=== PATIENT | female | born 1940 | race Caucasian/White ===

== ENCOUNTER 2019-02-11 14:18 | Observation (INO) ==
[2019-02-11] MEDS ORDERED: 0.9 % Sodium Chloride 1,000 ML IVC ONE ×2 (15:11→18:51)
[2019-02-11 15:26] LABS: Basophils % 0.2 %; Eosinophils % 0.9 %; Hematocrit 39.4 % (35.3-44.9); Hemoglobin 13.1 g/dL (11.5-15.4); Immature Granulocytes % 0.4 % (0-4); Lymphocytes # 0.4 K/mcL (0.6-4.6); Lymphocytes % 8.2 %; Mean Corpuscular HGB Conc 33.2 g/dL (31.6-35.5); Mean Corpuscular Hemoglobin 30.8 pg (28.0-33.3); Mean Corpuscular Volume 92.7 fL (83.0-100.0); Mean Platelet Volume 10.4 fL (9.4-12.4); Monocytes % 0.2 %; Neutrophils # 4.2 K/mcL (1.6-8.9); Platelet Count 185 K/mcL (140-400); Red Blood Count 4.25 M/mcL (3.82-4.97); Red Cell Distribution Width 14.1 % (11.5-14.5); Segmented Neutrophils % 90.1 %
[2019-02-11] MEDS ORDERED: Ondansetron 4 MG/2 ML VIAL IVP ONE (15:28)
[2019-02-11 15:36] LABS: INR 1.4; Prothrombin Time 15.5 Seconds (9.4-12.1)
--- NOTE | 2019-02-11 15:39 | Emergency Department Note ---
Disposition Clinical Impression: Generalized weakness, SVT (supraventricular tachycardia) Nausea & vomiting Qualifiers: Vomiting type: unspecified Vomiting Intractability: non-intractable Qualified Code(s): R11.2 - Nausea with vomiting, unspecified Disposition: Admitted As Inpatient Condition: Undetermined Referrals: NONE,PCP [Primary Care Provider] - Forms: ED Satisfaction Letter Time of Disposition: 18:15 Nausea/Vomiting/Diarrhea HPI - General Chief complaint: ED Nausea/Vomiting/Diarrhea Stated complaint: Bodyaches,fever,chills,vomiting,Diahrrea Time Seen by Provider: 02/11/19 14:53 Source: patient Mode of arrival: ambulatory Limitations: no limitations Nursing Notes Reviewed: Yes Vital Signs Reviewed: Yes - History of Present Illness HPI Narrative: 78-year-old female with history of atrial fibrillation on metoprolol and Eliquis arrives to the emergency department with complaint of nausea, vomiting and irregular heart rate. The patient states that she was at a service and felt nauseated begin shaking. Patient has had 4 episodes of vomiting since as well as started. The patient arrives to the emergency department in SVT. She quickly vagal herself out of SVT. The patient denies any other complaints at this time other than just some mild generalized weakness. Patient denies any traumatic injury, no abdominal pain, no difficulty breathing, cough, chest pain. She is resting comfortably in the room at this time but she does appear to have what appears to be bilious vomit in a emesis bag at bedside. Patient denies any other acute complaints at this time. - Related Data Home Medications Medication Instructions Recorded Confirmed Allopurinol [Zyloprim 300 MG] 300 mg PO HS 02/11/19 02/11/19 Apixaban [Eliquis] 5 mg PO BID 02/11/19 02/11/19 Aspirin [Lo-Dose Aspirin EC] 81 mg PO HS 02/11/19 02/11/19 Atorvastatin Calcium [Lipitor] 20 mg PO HS 02/11/19 02/11/19 CloNIDine Patch [Catapres-Tts] 0.3 mg TD REAVES 02/11/19 02/11/19 Furosemide [Lasix] 20 mg PO DAILY 02/11/19 02/11/19 Latanoprost [Xalatan] 1 drop BOTH EYES HS 02/11/19 02/11/19 Losartan/Hydrochlorothiazide 1 tab PO DAILY 02/11/19 02/11/19 [Losartan-Hctz 50-12.5 mg Tab] Metoprolol Succinate [Toprol Xl] 50 mg PO DAILY 02/11/19 02/11/19 Allergies Allergy/AdvReac Type Severity Reaction Status Date / Time No Known Allergies Allergy Verified 02/11/19 15:27 All systems ED: reviewed and negative except as stated. Constitutional: Reports: fever, chills, weakness Eyes: Denies: vision change ENT ED: Denies: dysphagia Cardiovascular: Reports: palpitations. Denies: chest pain, dyspnea on exertion Respiratory: Denies: dyspnea Gastrointestinal: Reports: nausea, vomiting. Denies: abdominal pain, diarrhea, constipation, hematemesis, melena, hematochezia Genitourinary: Denies: urgency, dysuria Musculoskeletal: Denies: back pain Integumentary: Denies: rash Neurological: Denies: headache Past Medical History - Past Medical History Attestation: Yes The following information was validated with the patient. Source: patient, old records reviewed Medical history: Reports: atrial fibrillation, hyperlipidemia, hypertension Surgical history: Reports: non-contributory - Social History Smoking Status: Never smoker Alcohol use: Reports: none Drug use: Reports: none Physical Exam - General Limitations: no limitations General appearance: alert, in no apparent distress - Head Head exam: atraumatic, normocephalic, normal inspection - Eye Eye exam: Present: normal appearance, PERRL, EOMI - ENT ENT exam: normal exam, normal oropharynx, mucous membranes moist - Neck Neck exam: Present: normal inspection, full ROM, trachea midline - Chest Chest inspection: Present: normal inspection, symmetric chest wall rise - Respiratory Respiratory exam: Present: normal lung sounds bilaterally - Cardiovascular Cardiovascular exam: Present: regular rate, normal rhythm, normal heart sounds - Abdominal Exam Abdominal exam: Present: soft, Non-Tender. Absent: tenderness, distention, guarding, rebound, rigidity - Extremities Exam Extremities exam: Present: normal inspection, full ROM, normal capillary refill. Absent: tenderness, pedal edema - Neurological Exam Neurological exam: Present: alert, oriented X3, CN II-XII intact - Skin Skin exam: Present: warm, dry, intact, normal color Course Vital Signs Temperature 100.9 F H 02/11/19 14:33 Pulse Rate 78 02/11/19 14:33 Respiratory Rate 18 02/11/19 14:33 Blood Pressure 137/84 02/11/19 14:33 O2 Sat by Pulse Oximetry 96 02/11/19 14:33 Temperature 100.9 F H 02/11/19 14:33 Pulse Rate 99 02/11/19 17:38 Respiratory Rate 14 02/11/19 17:38 Blood Pressure 158/76 02/11/19 17:38 O2 Sat by Pulse Oximetry 97 02/11/19 17:38 Oxygen Delivery Oxygen Delivery Room Air Nausea/Vomiting/Diarrhea - MDM Narrative Medical decision making narrative: Patient's evaluation in the emergency department demonstrates numerous electrolyte abnormalities. The patient has been going in and out of SVT upon arrival that is easily corrected with vagal response. The patient will be admitted to the hospital at this time given the patient's weakness and continued nausea. No further questions or concerns noted at this time. Patient and timur gunny made aware. Accepted by Dr. Schroeder. - Lab Data Lab results reviewed: Yes I reviewed the patient's lab results. Result diagrams: 02/11/19 14:56 02/11/19 14:56 Lab Results 02/11/19 02/11/19 02/11/19 Range/Units 14:56 14:56 14:56 WBC 4.6 (4.3-11.1) K/mcL RBC 4.25 (3.82-4.97) M/mcL Hgb 13.1 (11.5-15.4) g/dL Hct 39.4 (35.3-44.9) % MCV 92.7 (83.0-100.0) fL MCH 30.8 (28.0-33.3) pg MCHC 33.2 (31.6-35.5) g/dL RDW 14.1 (11.5-14.5) % Plt Count 185 (140-400) K/mcL MPV 10.4 (9.4-12.4) fL Immature Gran % 0.4 (0-4) % Seg Neutrophils % 90.1 % Lymphocytes % 8.2 % Monocytes % 0.2 % Eosinophils % 0.9 % Basophils % 0.2 % Neutrophils # 4.2 (1.6-8.9) K/mcL Lymphocytes # 0.4 L (0.6-4.6) K/mcL Monocytes # 0.0 (0.0-1.3) K/mcL Eosinophils # 0.0 (0.0-0.6) K/mcL Basophils # 0.0 (0.0-0.2) K/mcL PT 15.5 H (9.4-12.1) Seconds INR 1.4 APTT 24.0 L (26.0-36.0) Seconds D-Dimer 3168 H (0-500) ng/mLFEU Sodium 140 (136-145) mEq/L Potassium 3.2 L (3.5-5.1) mEq/L Chloride 100 (98-107) mEq/L Carbon Dioxide 26 (23-29) mEq/L BUN 29 H (8-23) mg/dL Creatinine 1.04 (0.60-1.20) mg/dL Est GFR ( Amer) > 60 (> 60) Est GFR (Non-Af Amer) 51 L (> 60) BUN/Creatinine Ratio 28 H (6-26) Glucose 100 (70-105) mg/dL Calculated Osmolality 296 (280-300) Calcium 9.6 (8.6-10.3) mg/dL Magnesium 1.4 L (1.6-2.6) mg/dL Troponin I < 0.03 (< 0.04) ng/mL TSH 2.609 (0.340-5.600) mcIU/mL Urine Color (Yellow) Urine Clarity (Clear) Urine pH (5.0-8.0) pH Units Ur Specific [place] (1.010-1.025) Urine Protein (Neg-Trace) mg/dL Urine Glucose (UA) (Normal) mg/dL Urine Ketones (Negative) mg/dL Urine Blood (Negative) Urine Nitrite (Negative) Urine Bilirubin (Negative) Urine Urobilinogen (Normal) mg/dL Ur Leukocyte Esterase (Negative) Urine Microscopic RBC (0-3) per hpf Urine Microscopic WBC (0-3) per hpf Ur Squamous Epith Cells (None-Few) per lpf Urine Bacteria (None-Few) per hpf Hyaline Casts (None-Few) per lpf Ur Culture Indicated? (NO) 02/11/19 Range/Units 16:37 WBC (4.3-11.1) K/mcL RBC (3.82-4.97) M/mcL Hgb (11.5-15.4) g/dL Hct (35.3-44.9) % MCV (83.0-100.0) fL MCH (28.0-33.3) pg MCHC (31.6-35.5) g/dL RDW (11.5-14.5) % Plt Count (140-400) K/mcL MPV (9.4-12.4) fL Immature Gran % (0-4) % Seg Neutrophils % % Lymphocytes % % Monocytes % % Eosinophils % % Basophils % % Neutrophils # (1.6-8.9) K/mcL Lymphocytes # (0.6-4.6) K/mcL Monocytes # (0.0-1.3) K/mcL Eosinophils # (0.0-0.6) K/mcL Basophils # (0.0-0.2) K/mcL PT (9.4-12.1) Seconds INR APTT (26.0-36.0) Seconds D-Dimer (0-500) ng/mLFEU Sodium (136-145) mEq/L Potassium (3.5-5.1) mEq/L Chloride (98-107) mEq/L Carbon Dioxide (23-29) mEq/L BUN (8-23) mg/dL Creatinine (0.60-1.20) mg/dL Est GFR ( Amer) (> 60) Est GFR (Non-Af Amer) (> 60) BUN/Creatinine Ratio (6-26) Glucose (70-105) mg/dL Calculated Osmolality (280-300) Calcium (8.6-10.3) mg/dL Magnesium (1.6-2.6) mg/dL Troponin I (< 0.04) ng/mL TSH (0.340-5.600) mcIU/mL Urine Color Yellow (Yellow) Urine Clarity Clear (Clear) Urine pH 6.5 (5.0-8.0) pH Units Ur Specific [place] 1.015 (1.010-1.025) Urine Protein Negative (Neg-Trace) mg/dL Urine Glucose (UA) Normal (Normal) mg/dL Urine Ketones Negative (Negative) mg/dL Urine Blood Negative (Negative) Urine Nitrite Negative (Negative) Urine Bilirubin Negative (Negative) Urine Urobilinogen Normal (Normal) mg/dL Ur Leukocyte Esterase Small H (Negative) Urine Microscopic RBC 3-5 H (0-3) per hpf Urine Microscopic WBC 5-15 H (0-3) per hpf Ur Squamous Epith Cells Many H (None-Few) per lpf Urine Bacteria Few (None-Few) per hpf Hyaline Casts None Seen (None-Few) per lpf Ur Culture Indicated? NO. A (NO) - Radiology Data Radiology results reviewed: Yes I reviewed the patient's radiology results. Chest X-Ray 02/11/19 15:11 IMPRESSION: No acute abnormality detected. D/ / Daniel Muniz MD / Daniel Muniz MD Interpreting Provider: Daniel uMniz MD Chest CTA 02/11/19 15:49 IMPRESSION: No evidence of pulmonary embolism or acute pulmonary abnormality. Moderate-sized hiatal hernia. Patulous esophagus. Correlate with any clinical evidence of esophageal dysmotility. D/ / Daniel Muniz MD / Daniel Muniz MD Interpreting Provider: Daniel Muniz MD - EKG Data EKG attestation: Yes I reviewed and interpreted this EKG. EKG results narrative: Heart rate 113 beats for minute. Sinus tachycardia. Mild ST depression noted in lead 1. No other acute changes noted. EKG #2 was a rhythm strip with heart rate 180 SVT. Attestation Statement - Attestation Attestation: I, Hero Myles, examined this patient and my medical decision-making was reviewed with the BLEACH MAKER/PA/Advanced Practice Nurse/Resident Physician. I agree with the documented findings, disposition and treatment plan as described except to the extent set forth below. 78-year-old female presents emergency Department with concerns of generalized malaise, weakness, fatigue. Patient was at a when she had acute onset of her symptoms. EMS was called and evaluated the patient who found that she was in a tachycardic irregular rhythm. Patient has a history of atrial fibrillation. She is visiting from [place]. Denies recent nausea, vomiting, diarrhea, chest pain, shortness breath, syncope. During the evaluation the patient went in and out of SVT multiple times. She improved and converted to a sinus rhythm with vagal maneuvers each time. Laboratory evaluation did not reveal significant amount he. Because of patient's recurrent SVT as well as her recurrent associated symptoms, she will be admitted to the hospitalist for further evaluation. Patient had a fever during the initial evaluation, influe nza was negative. Patient was hypomagnesemic. CTA of the chest did not show evidence of PE or infiltrate.
[2019-02-11 15:44] LABS: BUN/Creatinine Ratio 28 (6-26); Blood Urea Nitrogen 29 mg/dL (8-23); Calcium 9.6 mg/dL (8.6-10.3); Carbon Dioxide 26 mEq/L (23-29); Chloride 100 mEq/L (98-107); Glucose 100 mg/dL (70-105); Osmolality,Calculated 296 (280-300); Potassium 3.2 mEq/L (3.5-5.1); Sodium 140 mEq/L (136-145); eGFR For Non-African Americans 51 (> 60)
[2019-02-11 15:45] LABS: Troponin I < 0.03 ng/mL (< 0.04)
[2019-02-11] MEDS ORDERED: Isovue-370 500 ML BOTTLE IVP ONE (15:49)
[2019-02-11 15:54] LABS: Magnesium 1.4 mg/dL (1.6-2.6)
[2019-02-11 15:58] LABS: Thyroid Stimulating Hormone 2.609 mcIU/mL (0.340-5.600)
[2019-02-11 16:49] LABS: Bilirubin,Urine Negative (Negative); Blood,Urine Negative (Negative); Clarity,Urine Clear (Clear); Color,Urine Yellow (Yellow); Glucose,Urine (UA) Normal (Normal); Ketones,Urine Negative (Negative); Leukocyte Esterase,Urine Small (Negative); Nitrite,Urine Negative (Negative); PH,Urine 6.5 pH Units (5.0-8.0); Protein,Urine Negative (Neg-Trace); Specific Gravity,Urine 1.015 (1.010-1.025); Urobilinogen,Urine Normal (Normal)
[2019-02-11 16:54] LABS: Bacteria,Urine Few per hpf (None-Few); Hyaline Casts,Urine None Seen per lpf (None-Few); Squamous Epithelial Cell,Urine Many per lpf (None-Few)
[2019-02-11] MEDS ORDERED: Naloxone 0.4 MG/ML INJ IVP PRN (21:02)
[2019-02-11] MEDS ORDERED: Ondansetron 4 MG/2 ML VIAL IVP PRN (21:02)
--- NOTE | 2019-02-11 21:05 | Internal Med History&Physical ---
<Bonnie Mcbride - Last Filed: 02/12/19 01:28> Date of Encounter: 02/12/19 Time of Encounter: 21:53 Internal Medicine - H&P: HPI Chief complaint: Chills, nausea, vomiting Admitted From: Home History of present illness: Ms. Farmer is a 78 year old female with history of A. fib on Eliquis, HTN, HLD who presented to the ER with a chief complaint of chills, nausea and vomiting that started today. Patient states that she was in from out of town for her nephew's today. She states that her symptoms began when they were at the grave site early afternoon, and she started to experience chills although it was not cold out. She had not ate anything since breakfast and thought that she maybe just needed something to eat. They proceeded to the [employer] club for a late lunch and she continued to experience chills. A family member that is an EMT checked her pulse and said that it was elevated, and recommended seeing how she felt after eating something. Patient states that shortly after eating she felt nauseous and began to vomit, at which point a brought her to the ER. She states that there were few moments where her heart seemed to be racing, but otherwise denies palpitations. He does admit that she has been under increased stress recently with trying to sell her home and then the of her nephew. She denies fevers or any recent sick contacts. She states that she had a little bit of diarrhea yesterday, but that is not abnormal for her on occasion. She states that she felt fine until this afternoon when her symptoms began. She denies lightheadedness, syncope, chest pain, shortness of breath, hematemesis, or abdominal pain. She was febrile on presentation and found to have multiple episodes of SVT that converted with vagal maneuvers and was admitted for further monitoring. ER course: Febrile at 100.9, HR 99, RR 18, BP 137/84, 96% on room air WBC 4.6 K 3.2, Mg 1.4 EKG HR 113, sinus tachycardia, mild ST depression in lead 1 Rhythm strip HR 180, SVT Patient with multiple episodes of SVT in the ER that improved and converted with vagal maneuvers each time s/p 1L NS fluid bolus UA nitrite negative, small leukocyte Estrace, few bacteria, many squamous Influenza A/B- CXR no acute abnormality CTA no evidence of PE. Moderate sized hiatal hernia. Patulous esophagus, correlate with any clinical evidence of esophageal dysmotility. Past Med Surg Social Fam HX - Past Medical History Medical history: atrial fibrillation, hyperlipidemia, hypertension Additional medical history: Gout - Past Surgical History Surgical History: non-contributory Additional surgical history: D & C - Social History Smoking Status: Never smoker Alcohol use: none Drug use: none Internal Medicine - H&P: Meds Apixaban [Eliquis] 5 mg PO BID 02/11/19 [History] Aspirin [Lo-Dose Aspirin EC] 81 mg PO HS 02/11/19 [History] Atorvastatin Calcium [Lipitor] 20 mg PO HS 02/11/19 [History] Losartan/Hydrochlorothiazide [Losartan-Hctz 50-12.5 mg Tab] 1 tab PO DAILY 02/11/19 [History] Metoprolol Succinate [Toprol Xl] 50 mg PO DAILY 02/11/19 [History] RX: Allopurinol [Zyloprim 300 MG] 300 mg PO HS 02/11/19 [History] RX: CloNIDine Patch [Catapres-Tts] 0.3 mg TD REAVES 02/11/19 [History] RX: Furosemide [Lasix] 20 mg PO DAILY 02/11/19 [History] RX: Latanoprost [Xalatan] 1 drop BOTH EYES HS 02/11/19 [History] Allergy/AdvReac Type Severity Reaction Status Date / Time No Known Allergies Allergy Verified 02/11/19 15:27 All Systems PM: A 10-system review of systems was performed and is negative for pertinent findings except as documented above in the HPI. - Constitutional Constitutional: chills, fever(s), no falls, no weakness - EENT Eyes: no blurry vision, no change in vision - Cardiovascular Cardiovascular ROS IM: irregular heart rhythm, no chest pain, no diaphoresis, no dyspnea, no edema, no lightheadedness, no palpitations, no syncope - Respiratory Respiratory: no cough, no hemoptysis - Gastrointestinal Gastrointestinal: diarrhea, nausea, vomiting, no abdominal pain, no hematemesis - Musculoskeletal Musculoskeletal ROS IM: no joint swelling, no numbness, no tingling - Neurological Neurological ROS: no behavioral changes, no dizziness, no frequent falls, no headache(s) - Psychiatric Psychiatric: no behavioral changes, no change in appetite - Constitutional Vitals: Temp Pulse Resp BP Pulse Ox 97.6 F 93 17 131/74 92 02/11/19 20:48 02/11/19 20:48 02/11/19 20:48 02/11/19 20:48 02/11/19 20:48 General appearance: Present: A&O X 3, pleasant, no acute distress, answers questions appropriately Exam: see above - Head Head exam: Present: atraumatic, normocephalic - Eye Eye exam: Present: EOMI, conjuntiva pink, sclera anicteric - ENT ENT exam: Present: mucous membranes moist - Neck Neck exam general surgery: Present: trachea midline - Respiratory Respiratory exam: Present: CTAB. Absent: accessory muscle use, rales, rhonchi, wheezes - Cardiovascular Cardiovascular exam: Present: RRR, +S1, +S2. Absent: diastolic murmur, systolic murmur - GI/Abdominal GI/Abdominal exam: Present: normal bowel sounds, soft, no peritoneal signs. Absent: distended, tenderness - Extremities Exam Extremities exam: Present: warm, radial pulses palpable and symmetrical. Absent: cyanotic, pedal edema - Neurological Exam Neurological exam: Present: oriented X3, no focal deficits. Absent: pronater drift, facial droop, speech deficit - Psychiatric Psychiatric exam: Present: normal affect, normal mood - Skin Skin exam: Present: dry, intact, warm. Absent: diaphoretic, rash Internal Med - H&P Results - Labs CBC & Chem 7: 02/11/19 14:56 02/12/19 00:32 Labs: Short CBC 02/11/19 Range/Units 14:56 WBC 4.6 (4.3-11.1) K/mcL Hgb 13.1 (11.5-15.4) g/dL Hct 39.4 (35.3-44.9) % Plt Count 185 (140-400) K/mcL Neutrophils # 4.2 (1.6-8.9) K/mcL BMP 02/11/19 14:56 Sodium 140 Potassium 3.2 L Chloride 100 Carbon Dioxide 26 BUN 29 H Creatinine 1.04 Glucose 100 Calcium 9.6 Cardiac Enzymes 02/11/19 Range/Units 14:56 Troponin I < 0.03 (< 0.04) ng/mL Urine 02/11/19 Range/Units 16:37 Urine Color Yellow (Yellow) Urine Clarity Clear (Clear) Urine pH 6.5 (5.0-8.0) pH Units Ur Specific [place] 1.015 (1.010-1.025) Urine Protein Negative (Neg-Trace) mg/dL Urine Glucose (UA) Normal (Normal) mg/dL - Impressions ITS Impressions Chest X-Ray 02/11/19 15:11 IMPRESSION: No acute abnormality detected. D/ / Daniel Muniz MD / Daniel Muniz MD Interpreting Provider: Daniel Muniz MD Chest CTA 02/11/19 15:49 IMPRESSION: No evidence of pulmonary embolism or acute pulmonary abnormality. Moderate-sized hiatal hernia. Patulous esophagus. Correlate with any clinical evidence of esophageal dysmotility. D/ / Daniel Muniz MD / Daniel Muniz MD Interpreting Provider: Daniel Muniz MD - Assessment and Plan (1) SVT (supraventricular tachycardia) Current Visit: Yes Status: Acute Assessment and plan: Etiology unclear, possibly stress related Patient denies chest pain, palpitations, SOB Multiple episodes of SVT in the ER, resolved with vagal maneuvers K 3.2, Mg 1.4 supplemented in the ER Febrile at 100.9 on presentation, possible hyperdynamic state. Unclear infectious source. Echo pending CXR negative CTA without evidence of PE. Hiatal hernia noted, patulous esophagus. Continue cardiac monitoring Continue IV fluids Reassess electrolytes on AM labs, supplement as needed (2) Hypokalemia Current Visit: Yes Status: Acute Assessment and plan: K3.2 presentation s/p 40 mEq supplementation Continue to monitor and supplement as needed (3) Hypomagnesemia Current Visit: Yes Status: Acute Assessment and plan: Mg 1.4 on presentation s/p 2 g supplementation Continue to monitor and supplement as needed (4) Chronic a-fib Current Visit: Yes Status: Chronic Assessment and plan: Currently NSR Continue home meds Continue cardiac monitoring (5) HTN (hypertension) Current Visit: Yes Status: Chronic Assessment and plan: Chronic, stable Continue home meds Qualifiers: Hypertension type: essential hypertension Qualified Code(s): I10 - Essential (primary) hypertension (6) HLD (hyperlipidemia) Current Visit: Yes Status: Chronic Assessment and plan: Continue home meds Qualifiers: Hyperlipidemia type: unspecified Qualified Code(s): E78.5 - Hyperlipidemia, unspecified (7) DVT prophylaxis Current Visit: Yes Status: Acute Assessment and plan: Eliquis - Time Spent With Patient Total time spent is greater than 50% in coordination of care (as documented) at patient's floor/unit and/or counseling patient: 25 - 35 minutes <Matt Manzo - Last Filed: 02/12/19 03:50> Date of Encounter: 02/11/19 All Systems PM: A 10-system review of systems was performed and is negative for pertinent findings except as documented above in the HPI. - Constitutional Vitals: Temp Pulse Resp BP Pulse Ox 98.5 F 80 12 115/70 90 02/11/19 23:51 02/11/19 23:51 02/11/19 23:51 02/11/19 23:51 02/11/19 23:51 Internal Med - H&P Results - Labs CBC & Chem 7: 02/11/19 14:56 02/12/19 00:32 Labs: Short CBC 02/11/19 Range/Units 14:56 WBC 4.6 (4.3-11.1) K/mcL Hgb 13.1 (11.5-15.4) g/dL Hct 39.4 (35.3-44.9) % Plt Count 185 (140-400) K/mcL Neutrophils # 4.2 (1.6-8.9) K/mcL BMP 02/11/19 02/11/19 14:56 22:45 Sodium 140 139 Potassium 3.2 L 3.5 Chloride 100 105 Carbon Dioxide 26 26 BUN 29 H 25 H Creatinine 1.04 0.96 Glucose 100 117 H Calcium 9.6 8.7 Cardiac Enzymes 02/11/19 Range/Units 14:56 Troponin I < 0.03 (< 0.04) ng/mL Urine 02/11/19 Range/Units 16:37 Urine Color Yellow (Yellow) Urine Clarity Clear (Clear) Urine pH 6.5 (5.0-8.0) pH Units Ur Specific [place] 1.015 (1.010-1.025) Urine Protein Negative (Neg-Trace) mg/dL Urine Glucose (UA) Normal (Normal) mg/dL - Impressions ITS Impressions Chest X-Ray 02/11/19 15:11 IMPRESSION: No acute abnormality detected. D/ / Daniel Muniz MD / Daniel Muniz MD Interpreting Provider: Daniel Muniz MD Chest CTA 02/11/19 15:49 IMPRESSION: No evidence of pulmonary embolism or acute pulmonary abnormality. Moderate-sized hiatal hernia. Patulous esophagus. Correlate with any clinical evidence of esophageal dysmotility. D/ / Daniel Muniz MD / Daniel Muniz MD Interpreting Provider: Daniel Muniz MD - Time Spent With Patient Total time spent is greater than 50% in coordination of care (as documented) at patient's floor/unit and/or counseling patient: - Attending Attestation I performed a history and physical exam of the patient on 02/11/19 and discussed management with the resident. I reviewed the resident's note and agree with the documented findings and plan of care. 78 year old woman who developed chills and shaking while at a and noted to have a high heart rate. Seen to have SVT in the ER that resolved with vagal maneuvers. Lab revealing low Mg/K. Will give fluid resuscitation and supplement her electrolytes accordingly. MICHAEL BARNES.
[2019-02-11] MEDS ORDERED: Aspirin Enteric Coated 81 MG Tablet PO SCH (21:45)
[2019-02-11] MEDS ORDERED: Latanoprost 2.5 ML BOTTLE BOTH EYES SCH (22:00)
[2019-02-11] MEDS: Apixaban 5 MG TABLET PO SCH (22:43)
[2019-02-11 23:34] LABS: BUN/Creatinine Ratio 26 (6-26); Blood Urea Nitrogen 25 mg/dL (8-23); Calcium 8.7 mg/dL (8.6-10.3); Carbon Dioxide 26 mEq/L (23-29); Chloride 105 mEq/L (98-107); Glucose 117 mg/dL (70-105); Osmolality,Calculated 293 (280-300); Potassium 3.5 mEq/L (3.5-5.1); Sodium 139 mEq/L (136-145); eGFR For Non-African Americans 56 (> 60)
[2019-02-12 01:07] LABS: Calcium 8.5 mg/dL (8.6-10.3); Magnesium 1.9 mg/dL (1.6-2.6); Potassium 3.5 mEq/L (3.5-5.1)
[2019-02-12] MEDS: Apixaban 5 MG TABLET PO SCH (07:16)
[2019-02-12] MEDS ORDERED: Metoprolol XL (24 HR) Succ 50 MG TAB.ER.24H PO SCH (09:00)
[2019-02-12 11:50] VITALS: BP 157/77
--- NOTE | 2019-02-12 12:55 | Discharge Summary ---
- NOTES TO OUTPATIENT PROVIDER Notes to Outpatient Provider: Follow up with cardiology as an outpatient Orders not resulted at time of discharge: Pending orders 02/11/19 15:11 ECG 12 lead ECG [ECG] Stat Date of Encounter: 02/12/19 Time of Encounter: 11:00 Hospital course: Patient is a 78-year-old female with past medical history of A. fib on Eliquis in addition to hypertension and hyperlipidemia who presented to the ER due to complaints of nausea/vomiting with chills after nephews . In the ER, patient was noted to have SVT that converted with vagal maneuver. Patient was admitted for observation. During patients overnight hospital stay her further SVT was noted and patient will be discharged to follow-up with network program manager as an outpatient. - Time Spent with Patient Total time spent providing and/or coordinating discharge services: - Discharge Medications Prescriptions: Continue Metoprolol Succinate [Toprol Xl] 50 mg PO DAILY Losartan/Hydrochlorothiazide [Losartan-Hctz 50-12.5 mg Tab] 1 tab PO DAILY Furosemide [Lasix] 20 mg PO DAILY CloNIDine Patch [Catapres-Tts] 0.3 mg TD REAVES Aspirin [Lo-Dose Aspirin EC] 81 mg PO HS Atorvastatin Calcium [Lipitor] 20 mg PO HS Apixaban [Eliquis] 5 mg PO BID Allopurinol [Zyloprim 300 MG] 300 mg PO HS Latanoprost [Xalatan] 1 drop BOTH EYES HS Home Medications: Allopurinol [Zyloprim 300 MG] 300 mg PO HS 02/11/19 [History] Apixaban [Eliquis] 5 mg PO BID 02/11/19 [History] Aspirin [Lo-Dose Aspirin EC] 81 mg PO HS 02/11/19 [History] Atorvastatin Calcium [Lipitor] 20 mg PO HS 02/11/19 [History] CloNIDine Patch [Catapres-Tts] 0.3 mg TD REAVES 02/11/19 [History] Furosemide [Lasix] 20 mg PO DAILY 02/11/19 [History] Latanoprost [Xalatan] 1 drop BOTH EYES HS 02/11/19 [History] Losartan/Hydrochlorothiazide [Losartan-Hctz 50-12.5 mg Tab] 1 tab PO DAILY 02/11/19 [History] Metoprolol Succinate [Toprol Xl] 50 mg PO DAILY 02/11/19 [History] Allergies/Adverse Reactions: Allergy/AdvReac Type Severity Reaction Status Date / Time No Known Allergies Allergy Verified 02/11/19 15:27 Date of admission: 02/11/19 18:59 Primary care physician: PCP NONE - Constitutional Vitals: Temp Pulse Resp BP Pulse Ox 99.9 F H 77 16 157/77 90 02/12/19 11:48 02/12/19 11:48 02/12/19 11:48 02/12/19 11:48 02/12/19 11:48 General appearance: Present: A&O X 3, pleasant, no acute distress, answers questions appropriately Exam: Gen.: Nonacute distress, alert and oriented 3 Skin: Normal color - Patient Status Disposition: Home, Self-Care Condition: Undetermined - Discharge Instructions Instructions: Supraventricular Tachycardia (DC) Follow Up With: NONE,PCP [Primary Care Provider] - (Please follow-up with your family doctor in [place])
--- NOTE | 2019-02-16 07:54 | Electrocardiograph Report ---
[place] [id number] Test Date: 2019-02-11 Pat Name: Joann Farmer Department: EXAM10 Room: 2A42 Gender: F Stack Clerk: : 1940 Requested By: Hero Myles Order Number: [id number] Reading MD: Bay Hodge Measurements Intervals [place] Rate: 180 P: -5 TX: 112 QRS: -53 QRSD: 115 T: 97 QT: 308 QTc: 533 Interpretive Statements Supraventricular tachycardia Left ventricular hypertrophy with ST-T changes IVCD Electronically Signed On 02-16-2019 7:52:48 EDT by Bay Hodge
== END 2019-02-12 13:41 | disposition home or self-care (01) ==
LOC: 2ANU 14:18 → EMEROOARM 14:18 → SUATTDRO 18:59 → 2ANU 20:11
PROVIDERS: ADMIT Internal Medicine; ATTEND Hospitalist